=== PATIENT | female | born 1985 | race Caucasian/White ===

== ENCOUNTER 2017-10-31 00:59 | Emergency (ER) | payer OTHER ==
[~2017-10-31] VITALS: Ht 160 cm; Wt 76.7 kg
[2017-10-31] MEDS ORDERED: FAMOTIDINE 20 MG/2 ML VIAL IV STA (01:18)
[2017-10-31] MEDS ORDERED: DIPHENHYDRAMINE HCL INJ 50 MG/ML VIAL IV ONE (01:30)
[2017-10-31] MEDS ORDERED: METHYLPREDNISOLONE SOD SUCC 125 MG/2ML VIAL IV ONE (01:30)
[2017-10-31] MEDS ORDERED: SODIUM CHLORIDE 0.9% 1000ML 1,000 ML IV SCH (01:30)
[2017-10-31 03:11] VITALS: BP 122/72
[2017-10-31] MEDS ORDERED: SODIUM CHLORIDE 0.9% 1000ML 1,000 ML IV ONE (03:15)
== END 2017-10-31 03:00 | disposition home or self-care (01) ==
LOC: FSED 00:59
DX: T78.3XXA Angioneurotic edema, initial encounter (principal); T78.1XXA Other adverse food reactions, not elsewhere classified, initial encounter
CPT/HCPCS: 81025; 96360; 96374; 96375; 99283; J1200; J2930; J7030

== ENCOUNTER 2018-11-29 19:18 | Emergency (ER) | payer OTHER ==
[~2018-11-29] VITALS: Ht 160 cm; Wt 78.9 kg
[2018-11-29] MEDS ORDERED: SODIUM CHLORIDE 0.9% 1000ML 1,000 ML IV SCH (20:15)
[2018-11-29] MEDS ORDERED: ONDANSETRON HCL INJ 2MG/ML 2ML 2 MG/ML VIAL IV ONE (20:22)
[2018-11-29] MEDS ORDERED: ONDANSETRON ODT8 MG PO (20:38)
[2018-11-29] MEDS ORDERED: POTASSIUM CHLORIDE 20 MEQ TAB CR PO STA (22:03)
[2018-11-29] MEDS ORDERED: TAMIFLU75 MG PO (23:03)
[2018-11-30 00:41] VITALS: BP 135/74
== END 2018-11-29 23:19 | disposition home or self-care (01) ==
LOC: FSED 19:18
DX: O26.91 Pregnancy related conditions, unspecified, first trimester (principal); R50.9 Fever, unspecified; J11.1 Influenza due to unidentified influenza virus with other respiratory manifestations; R11.2 Nausea with vomiting, unspecified; E86.0 Dehydration; E87.6 Hypokalemia; K52.9 Noninfective gastroenteritis and colitis, unspecified
CPT/HCPCS: 99283; J2405